=== PATIENT | female | born 1940 | race Caucasian/White ===

== ENCOUNTER 2016-11-09 14:19 | Emergency (ER) | payer MEDICAID, MEDICARE ==
[~2016-11-09] VITALS: Ht 160 cm; Wt 73.5 kg
[~2016-11-09 14:19] MED LIST: ATOR20TA38 PO; CEPH500C PO; CLON1TAB3 PO; DOCU250C17 PO; DULO60CA6 PO; FURO20TA3 PO; IBUP400T22 PO; METF500T4 PO; MIDO5TAB19 PO; MIRT15TA5 PO; MORP-58 PO; ORPH100T PO; OXYB15TA PO; PILO5TAB PO; TIOT18CA INHALATION; VARE0.5T PO
[2016-11-09 14:30] VITALS: Ht 160 cm; Wt 73.5 kg
== END 2016-11-09 20:52 | disposition left against medical advice (07) ==
LOC: E/R 14:19
DX: Z53.21 Procedure and treatment not carried out due to patient leaving prior to being seen by health care provider (principal)
CPT/HCPCS: 82962

== ENCOUNTER 2016-11-19 19:43 | Observation (INO) | payer MEDICARE, MEDICAID, OTHER ==
[~2016-11-19] VITALS: Ht 167.6 cm; Wt 75.2 kg
[2016-11-19] MEDS ORDERED: METHYLPREDNISOLONE 125 MG INJ IV STA (19:48)
[2016-11-19] MEDS ORDERED: ALBUTEROL 0.083% (NEB) 2.5 MG/3 ML AMP NEB STA (19:48)
[2016-11-19] MEDS ORDERED: IPRATROPIUM (NEB) 0.5 MG/2.5 ML AMP NEB STA (19:48)
[2016-11-19 20:11] LABS: ADD SCAN DIFF NO
[2016-11-19 20:14] LABS: BASOPHIL # 0.1 10^3/ul (0.0-0.1); BASOPHILS % 0.9 % (0.0-2.0); EOSINOPHILS # 0.1 10^3/ul (0.0-0.5); EOSINOPHILS % 1.6 % (0.0-7.0); HEMOGLOBIN 14.4 g/dl (12.0-16.0); LYMPHOCYTES # 1.6 10^3/ul (0.8-2.9); LYMPHOCYTES % 19.4 % (15.0-51.0); MEAN CORPUSCULAR HEMOGLOBIN 31.6 pg (29.0-33.0); MEAN CORPUSCULAR HGB CONC 34.3 g/dl (32.0-37.0); MEAN CORPUSCULAR VOLUME 92.1 fl (82.0-101.0); MEAN PLATELET VOLUME 9.9 fl (7.4-10.4); MONOCYTE # 0.5 10^3/ul (0.3-0.9); MONOCYTES % 6.2 % (0.0-11.0); NEUTROPHIL # 5.9 10^3/ul (1.6-7.5); NEUTROPHILS % 71.3 % (39.0-77.0); PLATELET COUNT 285 10^3/UL (140-415); RED BLOOD COUNT 4.56 10^6/ul (4.20-5.40); RED CELL DISTRIBUTION WIDTH 12.6 % (11.5-14.5); WHITE BLOOD COUNT 8.2 10^3/ul (4.8-10.8)
[2016-11-19 20:25] LABS: CHLORIDE 98 mmol/L (97-110); INR 1.04; POTASSIUM 3.6 mmol/L (3.5-5.1); PROTIME 13.6 Sec (12.2-14.2); PT RATIO 1.1; SODIUM 135 mmol/L (135-144)
[2016-11-19 20:26] LABS: PARTIAL THROMBOPLASTIN TIME 29.3 Sec (25.0-35.0)
[2016-11-19 20:27] LABS: CREATININE 0.88 mg/dl (0.44-1.00)
[2016-11-19 20:28] LABS: ANION GAP 18 (8-16); BLOOD UREA NITROGEN 13 mg/dl (7-20); CALCIUM 10.4 mg/dl (8.4-10.2); CARBON DIOXIDE 23 mmol/L (21-31); GLUCOSE 120 mg/dl (70-220)
[2016-11-19 20:43] LABS: TROPONIN-I < 0.012 ng/ml (0.00-0.12)
--- NOTE | 2016-11-19 20:52 | RADRPT ---
PROCEDURE: XR Chest. CLINICAL INDICATION: Chest pain. TECHNIQUE: Portable AP semi erect view of the chest was obtained. COMPARISON: 01/24/2016 FINDINGS: The cardiomediastinal silhouette is within normal limits, dual chamber left subclavian cardiac pacem anju is again noted in good position. The lungs are clear but appear mildly hyperinflated, the diap hragm flattened. There is no evidence for pleural effusion, pneumothorax or pulmonary vascular [place] estion. Demineralization is again noted without evidence of acute osseous abnormality. Calcificatio n is visible within the aortic arch RPTAT:HJJR IMPRESSION: 1.No evidence for acute intrathoracic pathology or interval change from 01/24/2016 allowing for tech nical differences. 2. Hyperinflation of the lungs unable to exclude chronic obstructive pulmonary disease. 3. Left subclavian approach dual chamber cardiac pacemaker in good position. 4. Aortic atherosclerosis is present. Physician Fredy Date Time Electronically viewed and signed by Physician Fredy on 11/19/2016 20:52 /
[2016-11-19] MEDS ORDERED: SOD CHLORIDE 0.9% 1,000 ML IV STA (20:55)
[2016-11-19] MEDS ORDERED: SOD CHLORIDE 0.9% 1,000 ML IV SCH (21:58)
[2016-11-19] MEDS ORDERED: ONDANSETRON 4 MG INJ IV PRN (22:00)
[2016-11-19] MEDS ORDERED: ACETAMINOPHEN 325 MG TAB PO PRN (22:00)
--- NOTE | 2016-11-19 22:03 | ERA ---
ER Documentation Chief Complaint Date/Time DATE: 11/19/16 TIME: 21:59 Chief Complaint COUGH, CONGESTION, DIZZINESS, FEVERS AT HOME HPI This is a 76-year-old female presents to the emergency room for multiple complaints including cough, congestion, dizziness, weakness, and multiple falls at home. The patient states she lives by herself and has no one to take care of her. She states that she is falling down. She denies hitting her head. She denies being on any blood thinners. She does state that her weakness has not improved and she came to the ER for evaluation today. The patient denies any aggravating or relieving factors for any of her symptoms. ROS All systems reviewed and are negative except as per history of present illness. Medications Home Meds Active Scripts Orphenadrine Citrate (Norflex) 100 Mg Tablet.sa, 100 MG PO BID for 7 Days, TAB.SA Prov:YOANNA TAYLOR 02/18/16 Ibuprofen* (Motrin*) 400 Mg Tab, 400 MG PO Q6, #30 TAB Prov:YOANNA TAYLOR 02/18/16 Cephalexin* (Cephalexin*) 500 Mg Capsule, 500 MG PO Q8, #15 CAP Prov:OSCAR BOYD MD 01/25/16 Reported Medications Varenicline Tartrate (Chantix) 0.5 Mg Tablet, 0.5 MG PO BID, TAB 01/24/16 Tiotropium [place]* (Spiriva*) 18 Mcg Cap.w.dev, 1 CAP INHALATION DAILY, #30 CAP 09/29/15 Mirtazapine* (Mirtazapine*) 15 Mg Tablet, 15 MG PO HS, TAB 09/29/15 Docusate Sodium (COL-RITE) 250 Mg Capsule, 250 MG PO DAILY, CAP 09/29/15 [place] Hcl* (Salagen*) 5 Mg Tablet, 10 MG PO TID, TAB 04/08/15 Oxybutynin Chloride* (Oxybutynin Chloride* ER) 15 Mg/Bottle Tab.osm.24, 15 MG PO DAILY, TAB.SA 04/08/15 Furosemide* (Furosemide*) 20 Mg Tablet, 20 MG PO DAILY, TAB 04/08/15 Morphine Sulfate* (Ms Contin ER*) 30 Mg Tabsr, 30 MG PO BID, TAB 04/08/15 Midodrine* (Midodrine*) 5 Mg Tablet, 5 MG PO BID, TAB 04/08/15 Atorvastatin Calcium* (Atorvastatin Calcium*) 20 Mg Tablet, 20 MG PO HS, TAB 04/08/15 Clonazepam* (Clonazepam*) 1 Mg Tablet, 1 MG PO TID, TAB 04/08/15 Metformin* (Glucophage*) 500 Mg Tab, 500 MG PO BID 01/14/12 Duloxetine Hcl* (Cymbalta*) 60 Mg Capsule.dr, 60 MG PO DAILY 01/14/12 Allergies Allergies: Coded Allergies: No Known Allergy (Unverified , 09/29/15) PMhx/Soc History of Surgery: Yes (pacemaker, baldder sx) Anesthesia Reaction: No Hx Neurological Disorder: No Hx Respiratory Disorders: Yes (lung CA) Hx Cardiac Disorders: Yes (low blood pressure) Hx Psychiatric Problems: Yes (depression,anxiety) Hx Miscellaneous Medical Probl: Yes (anxiety,cognitive impairment, severe lumbar stenosis) Hx Alcohol Use: No Hx Substance Use: No Hx Tobacco Use: Yes (10 cigs a day) Smoking Status: Current every day smoker Physical Exam Vitals Vital Signs Date Time Temp Pulse Resp B/P Pulse Ox O2 Delivery O2 Flow Rate FiO2 11/19/16 20:19 74 18 100 21 11/19/16 19:45 97.6 76 20 170/88 99 Physical Exam Const: Frail-appearing elderly female Head: Atraumatic Eyes: Normal Conjunctiva ENT: Normal External Ears, Nose and Mouth. Neck: Full range of motion..~ No meningismus. Resp: Expiratory wheezing bilaterally Cardio: Regular rate and rhythm, no murmurs Abd: Soft, non tender, non distended. Normal bowel sounds Skin: No petechiae or rashes Back: No midline or flank tenderness Ext: No cyanosis, or edema Neur: Awake and alert Psych: Normal Mood and Affect Result Diagram: 11/19/16199911/19/161999 Results 24 hrs Laboratory Tests Test 11/19/16 20:00 White Blood Count 8.210^3/ul Red Blood Count 4.5610^6/ul Hemoglobin 14.4g/dl Hematocrit 42.0% Mean Corpuscular Volume 92.1fl Mean Corpuscular Hemoglobin 31.6pg Mean Corpuscular Hemoglobin Concent 34.3g/dl Red Cell Distribution Width 12.6% Platelet Count 05684^3/UL Mean Platelet Volume 9.9fl Neutrophils % 71.3% Lymphocytes % 19.4% Monocytes % 6.2% Eosinophils % 1.6% Basophils % 0.9% Nucleated Red Blood Cells % 0.0/100WBC Neutrophils # 5.910^3/ul Lymphocytes # 1.610^3/ul Monocytes # 0.510^3/ul Eosinophils # 0.110^3/ul Basophils # 0.110^3/ul Nucleated Red Blood Cells # 0.010^3/ul Prothrombin Time 13.6Sec Prothrombin Time Ratio 1.1 INR International Normalized Ratio 1.04 Activated Partial Thromboplast Time 29.3Sec Sodium Level 135mmol/L Potassium Level 3.6mmol/L Chloride Level 98mmol/L Carbon Dioxide Level 23mmol/L Anion Gap 18 Blood Urea Nitrogen 13mg/dl Creatinine 0.88mg/dl Glucose Level 120mg/dl Calcium Level 10.4mg/dl Troponin I < 0.012ng/ml Current Medications Medications (Trade) Dose Ordered Sig/Elias Route PRN Reason Start Time Stop Time Status Last Admin Dose Admin Albuterol (Proventil 0.083% (Neb)) 5 mg ONCE STAT NEB 11/19/16 19:48 11/19/16 19:50 DC 11/19/16 20:17 Ipratropium [place] (Atrovent 0.02% (Neb)) 0.5 mg ONCE STAT NEB 11/19/16 19:48 11/19/16 19:50 DC 11/19/16 20:17 Methylprednisolone Sodium Succinate 125 mg 125 mg ONCE STAT IV 11/19/16 19:48 11/19/16 19:50 DC 11/19/16 20:06 Sodium Chloride (NS) 1,000 ml @ 1,000 mls/hr Q1H STAT IV 11/19/16 20:55 11/19/16 21:54 DC 11/19/16 21:08 Procedures/MDM EKG: Rate/Rhythm: [Normal Sinus Rhythm] QRS, ST, T-waves: [No changes consistent w/ acute ischemia] Impression: [No evidence of ischemia or arrhythmia] Chest X-ray 1V Interpreted by me: Soft Tissue: No acute abnormalities Bones: No acute abnormalities Mediastinum/Cardiac Silhouette/Lungs: [No acute abnormalities] This 76-year-old female presents to the emergency room for evaluation of multiple falls, weakness. When I evaluated this patient she did have mild wheezing on my examination. She was given a breathing treatment. This patient is lab work which is within normal limits however she is an elderly female who has had multiple falls at home and was potential risk of fall with significant injury. She has no one to take care of her, does not feel comfortable going home. This patient will be placed in for admission at this time for possible placement in a senior living at this time. This patient is hemodynamically stable and [facility] time under the care of Dr. Escobar Departure Diagnosis: Primary Impression: Bilateral leg weakness Additional Impressions: Fall COPD exacerbation Condition: Stable MILES ALDANA DO Nov 19, 2016 22:03
[2016-11-19] MEDS ORDERED: traZODone 50 MG TAB PO ONE (22:30)
[2016-11-19 23:25] LABS: ADD UMIC YES; URINE BILIRUBIN (Dip) NEGATIVE (NEGATIVE); URINE BLOOD (Dip) NEGATIVE (NEGATIVE); URINE COLOR LT. YELLOW (YELLOW); URINE GLUCOSE (Dip) NEGATIVE (NEGATIVE); URINE KETONES (Dip) NEGATIVE (NEGATIVE); URINE LEUKOCYTE ESTERASE (Dip) 1+ (NEGATIVE); URINE NITRITE (Dip) NEGATIVE (NEGATIVE); URINE TOTAL PROTEIN (Dip) NEGATIVE (NEGATIVE); URINE UROBILINOGEN (Dip) 0.2 E.U./dL (0.1-1.0)
[2016-11-19 23:34] LABS: SQUAMOUS EPITHELIAL CELL,UR RARE; URINE RBCS 0-2 /HPF (0)
[2016-11-20 01:21] VITALS: TEMP 98.3
[2016-11-20 01:57] VITALS: Ht 167.6 cm; Wt 75.2 kg
[2016-11-20 01:58] VITALS: BP 123/66; PULSE 85; RESP 20
[2016-11-20] MEDS ORDERED: ASPI-664 PO (02:59)
[2016-11-20] MEDS ORDERED: UDKCL40 PO (02:59)
[2016-11-20] MEDS ORDERED: TRAZ100T15 PO (02:59)
[2016-11-20] MEDS ORDERED: METH500T PO (02:59)
[2016-11-20 03:02] LABS: CREATINE KINASE 50 IU/L (23-200)
[2016-11-20 03:17] LABS: TROPONIN-I < 0.012 ng/ml (0.00-0.12)
[2016-11-20] MEDS ORDERED: ONDANSETRON 4 MG TAB PO PRN (03:30)
[2016-11-20] MEDS ORDERED: ACETAMINOPHEN 500 MG TAB PO PRN (03:30)
[2016-11-20] MEDS ORDERED: IBUP200C PO (04:40)
[2016-11-20] MEDS ORDERED: IBUPROFEN 400 MG TAB PO SCH (06:00)
[2016-11-20 07:35] VITALS: BP 119/72; RESP 19
[2016-11-20 08:07] LABS: ADD SCAN DIFF NO
[2016-11-20] MEDS: HEPARIN 5,000 UNIT/0.5 ML VIAL SC SCH ×2 (08:32→20:47)
[2016-11-20] MEDS: INSULIN ASPART [NOVOLOG] 3 ML PEN SC SCH ×4 (08:32→20:48)
[2016-11-20] MEDS: metFORMIN 500 MG TAB PO SCH ×2 (08:35→18:08)
[2016-11-20 09:05] LABS: ALBUMIN 3.9 g/dl (3.3-4.9)
[2016-11-20 09:06] LABS: POTASSIUM 3.8 mmol/L (3.5-5.1)
[2016-11-20 09:07] LABS: CREATINE KINASE 45 IU/L (23-200)
[2016-11-20 09:08] LABS: BILIRUBIN,INDIRECT 0.4 mg/dl (0-1.1); BILIRUBIN,TOTAL 0.4 mg/dl (0.2-1.3); CREATININE 0.75 mg/dl (0.44-1.00)
[2016-11-20 09:09] LABS: CALCIUM 9.3 mg/dl (8.4-10.2); CHOL/HDL RATIO 3.4 RATIO; MAGNESIUM 1.7 mg/dl (1.7-2.5)
[2016-11-20 09:14] LABS: ALBUMIN/GLOBULIN RATIO 1.25
[2016-11-20 09:17] LABS: CK-MB 1.03 ng/ml (0.0-2.4)
[2016-11-20 09:28] LABS: TROPONIN-I < 0.012 ng/ml (0.00-0.12)
[2016-11-20] MEDS: IBUPROFEN 400 MG TAB PO PRN ×2 (09:35→16:01)
[2016-11-20 10:31] LABS: BASOPHILS % 0.1 % (0.0-2.0); HEMATOCRIT 38.3 % (37.0-47.0); HEMOGLOBIN 13.2 g/dl (12.0-16.0); LYMPHOCYTES # 0.7 10^3/ul (0.8-2.9); LYMPHOCYTES % 5.8 % (15.0-51.0); MEAN CORPUSCULAR HEMOGLOBIN 32.3 pg (29.0-33.0); MEAN CORPUSCULAR HGB CONC 34.5 g/dl (32.0-37.0); MEAN CORPUSCULAR VOLUME 93.6 fl (82.0-101.0); MEAN PLATELET VOLUME 10.3 fl (7.4-10.4); MONOCYTE # 0.1 10^3/ul (0.3-0.9); MONOCYTES % 0.8 % (0.0-11.0); NEUTROPHIL # 11.3 10^3/ul (1.6-7.5); PLATELET COUNT 296 10^3/UL (140-415); RED BLOOD COUNT 4.09 10^6/ul (4.20-5.40); RED CELL DISTRIBUTION WIDTH 12.6 % (11.5-14.5); WHITE BLOOD COUNT 12.2 10^3/ul (4.8-10.8)
[2016-11-20] MEDS ORDERED: GLUCOSE GEL 15 GRAM TUBE BUCCAL PRN (17:00)
[2016-11-20] MEDS ORDERED: DEXTROSE 50% 50 ML SYRINGE IV PRN ×2 (17:00)
[2016-11-20] MEDS ORDERED: GLUCAGON 1 MG INJ IM PRN (17:00)
[2016-11-20] MEDS ORDERED: GLUCOSE GEL 15 GRAM TUBE PO PRN ×2 (17:00)
--- NOTE | 2016-11-20 18:44 | HP ---
DATE OF ADMISSION: 11/19/2016 CHIEF COMPLAINT: Status post fall. HISTORY OF PRESENT ILLNESS: This is a 76-year-old woman who has had multiple falls at home. She de nied hitting her head. According to her, she did not lose any consciousness or did not have any diz ziness or other complaints. According to her occasionally she feels weak in her legs and sustains th neena falls and these are quite common. In any event, the patient was subsequently hospitalized for rther care. At present, she is sitting in bed. She denies any specific complaints other than low b ack pain which is chronic. Also she is complaining of the right shoulder area muscle spasm. Other t mayes that, she denies any cough, sputum production, fevers or other complaints. REVIEW OF SYSTEMS: CONSTITUTIONAL: Denies fever, chills, night sweats. RESPIRATORY: As mentioned above. CARDIOVASCULAR: Denies anginal palpitation. GASTROINTESTINAL: Denies nausea, vomiting, diarrhea, abdominal pain. GENITOURINARY: Denies dysuria or hematuria. NEUROLOGIC: Denies any loss of consciousness. Again also denies any seizure activity or dizziness. Other systems were reviewed also and were found negative. 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 She was also offered chemotherapy, but she declined. This was several years ago. She does not know the nature of the type of cancer. Also, has a history of cardiac pacemaker, depre ssion, anxiety, chronic back pain. ALLERGIES: DENIES. SOCIAL HABITS: The patient continues to smoke. Denies alcohol abuse. FAMILY HISTORY: Noncontributory. PHYSICAL EXAMINATION: VITAL SIGNS: Blood pressure 119/72, pulse 84, respirations 19, temperature 97.7. She is saturating 98% on room air. HEENT: Pupils are equal and reactive to light. NECK: Supple, no JVD noted, no cervical adenopathy, no carotid bruits heard. LUNGS: Fair breath sounds bilaterally. CARDIOVASCULAR: S1, S2 normal. ABDOMEN: Soft, nontender. No organomegaly or masses noted. EXTREMITIES: No clubbing, cyanosis, or edema noted. NEUROLOGICAL: No focal deficits noted. LABORATORIES: Sodium 135, potassium 3.8, chloride 101, CO2 22, BUN 12, creatinine 0.75, glucose 210 . LFTs are normal. Troponin less than 0.01. WBC 8.2, which is now 12.2, hemoglobin 13.2, hematocr it 38.3, platelets 296. UA is negative. Chest x-ray shows hyperinflated lung solares; however, no a cute infiltrate. Pacemaker in place. IMPRESSION: A 76-year-old female with: 1. Multiple falls, but cause is not quite clear. It appears that the patient does not have any car diac or neurological event. She is on multiple pain killers which may be the cause of these falls; however, she claims that she has been on these medications for a long time. 2. History of cancer in the neck, treated with radiation therapy; however, details are not availabl e. 3. History of chronic back pain due to lumbar stenosis. 4. History of smoking, suspect the patient has underlying chronic obstructive pulmonary disease; ho wever, not an exacerbation. PLAN: 1. Based on the current data, I do not see any evidence of infection. 2. The patient is not in COPD exacerbation as well. 3. We will ask for physical therapy evaluation. 4. The patient was advised that since she lives alone, she should make arrangements for a short-ter m fci placement, followed by an assisted care living facility. However, at present she is adamantly refusing such options. We will discuss with primary care team. Dictated By: LESLIE VAZQUEZ MD, MA/ADRIEL Conf#: [id number] DID#: [id number]
[2016-11-20 19:31] VITALS: BP 129/69; RESP 20
--- NOTE | 2016-11-20 20:03 | RADRPT ---
Echocardiogram Report Patient Name: YIFAN PALOMARES Gender: Female Date: 1940 Study Date: 20-Nov-2016 [place] Set Up Operator: Priyanka Lindsay [facility] Location: [id number] Ref. Physician: MARIELA CATALAN Quality: Good Procedures: Transthoracic echocardiogram with complete 2D, M-Mode, and doppler examination. Indications: Dizziness. 2D/M Mode Doppler Measurement Value Normal Ranges Measurement Value Normal Ranges LVIDd 2D 4.8 3.5 - 5.6 cm AV Peak [place] 1.5 m/sec LVIDs 2D 2.4 2.1 - 4.1 cm AV Peak PG 9.5 mmHg LVPWd 2D 1.0 0.6 - 1.1 cm LVOT Peak [place] 1.2 m/sec IVSd 2D 0.9 0.6 - 1.1 cm LVOT Peak PG 5.7 mmHg AoR Diam 2D 2.6 2.0 - 3.7 cm MV E Peak [place] 0.6 m/sec EDV 2D 108.2 cm3 MV A Peak [place] 0.9 m/sec ESV 2D 13.6 cm3 MV E/A 0.7 LA Dimen 2D 2.7 2.3 - 4.0 cm MV Decel Time 186 msec MV Decel [place] 3 MV E/A 0.7 TR Peak [place] 2.5 m/sec TR Peak PG 24.1 mmHg RVSP 27.0 mmHg Findings Left Ventricle: Normal left ventricular systolic function. Normal left ventricular cavity size. Mild concentric left ventricular hypertrophy. Ejection fraction is visually estimated at 6065 %. Tissue Doppler/Mitral Doppler indices are consistent with impaired relaxation (Stage I diastolic dysfunction). Right Ventricle: Normal right ventricular size. Normal right ventricular systolic function. Pacemaker right heart. Left Atrium: The left atrium is normal in size. Right Atrium: The right atrium is normal in size. Mitral Valve: Mitral valve leaflets appear mildly thickened. Mild mitral annular calcification. Trace mitral regurgitation. Aortic Valve: Normal appearance of the aortic valve. No significant aortic stenosis or insufficiency. Tricuspid Valve: Normal appearance of the tricuspid valve. Estimated peak PA systolic pressure 27 mmHg. There is trace tricuspid regurgitation. Pulmonic Valve: Pulmonic valve not well visualized. Pericardium: Normal pericardium with no significant pericardial effusion. Aorta: Normal aortic root. IVC: Normal size and normal respiratory collapse consistent with normal right atrial pressure. Conclusions 1.Normal left ventricular systolic function. Normal left ventricular cavity size. Mild concentric left ventricular hypertrophy. Ejection fraction is visually estimated at 60-65 %. Tissue Doppler/Mitral Doppler indices are consistent with impaired relaxation (Stage I diastolic dysfunction). 2.Normal right ventricular size. Normal right ventricular systolic function. Pacemaker right heart. 3.Mitral valve leaflets appear mildly thickened. Mild mitral annular calcification. Trace mitral regurgitation. 4.Normal appearance of the tricuspid valve. Estimated peak PA systolic pressure 27 mmHg. There is trace tricuspid regurgitation. Electronically Signed By: Desmond Grier 20-Nov-2016 20:02:33 -0700 Patient Name: YIFAN PALOMARES Study Date: 20-Nov-[id number]
[2016-11-20] MEDS ORDERED: KETOROLAC 15 MG INJ IV STA (21:32)
[2016-11-21] MEDS: ACCU-CHEK XX SCH (00:53)
[2016-11-21] MEDS ORDERED: ACCU-CHEK XX SCH (02:00)
[2016-11-21] MEDS: IBUPROFEN 400 MG TAB PO PRN ×3 (02:41→20:36)
[2016-11-21] MEDS ORDERED: AL HYDROX/MG HYDROX/SIMETH 30 ML CUP PO ONE (03:00)
[2016-11-21] MEDS: PANTOPRAZOLE (EC) 40 MG TAB PO SCH (05:32)
--- NOTE | 2016-11-21 06:39 | HP ---
DATE OF ADMISSION: 11/19/2016 TIME SEEN: 2300. CHIEF COMPLAINT: Dizziness, weakness and multiple falls. HISTORY OF ILLNESS: The patient is a 76-year-old female with a history of hypertension, diabetes, d yslipidemia, asthma, pacemaker who presented to the emergency department with the above stated chief complaint. The patient also has a history of old CVA. The patient had multiple complaints which i ncludes dizziness, generalized weakness and also reported that she had been falling down multiple ti mes. The patient is not a really good accusatory. PAST MEDICAL HISTORY: The patient repeatedly states "my doctor told me I don't have Parkinson's dise ase and she kept mentioning that a few times. She stated that sometimes she feels dizzy and also she noticed her legs feeling weak and as a result, she has been losing balance and falling down. She d enied hitting her head or loss of consciousness. When the patient presented to the ER. Her vitals a nd basic labs were within acceptable range. A head CT was not done, but she did have one from last year which showed an old CVA. LSO IN September of last year she had a CT of the lumbar spine, which show ed severe foraminal stenosis as well as the compression deformity in the L2 vertebral body. The pat meron also reported that she recently from her fiance and has been living by herself and fe eling depressed. The patient takes multiple medications at home, over 20. REVIEW OF SYSTEMS: AA 12-point review was performed, negative except as mentioned in the HPI. PAST MEDICAL HISTORY: As per HPI. PAST SURGICAL HISTORY: She smoked a half pack per day. Denied alcohol or illicit drug use. ALLERGIES AND HOME MEDICATIONS: Please see ____. PHYSICAL EXAMINATION: VITAL SIGNS: Stable. GENERAL: The patient lying in bed in no acute distress. DICTATION ENDS HERE, INCOMPLETE Dictated By: MARIELA LARSEN/ADRIEL Conf#: [id number] DID#: [id number]
[2016-11-21] MEDS: INSULIN ASPART [NOVOLOG] 3 ML PEN SC SCH ×4 (08:47→20:36)
[2016-11-21] MEDS: HEPARIN 5,000 UNIT/0.5 ML VIAL SC SCH ×2 (08:47→20:35)
[2016-11-21] MEDS: metFORMIN 500 MG TAB PO SCH ×2 (08:51→17:42)
--- NOTE | 2016-11-21 12:57 | DS ---
Date/Time of Note Date/Time of Note DATE: 11/21/16 TIME: 12:45 Discharge Summary Admission/Discharge Info Admit Date/Time Nov 19, 2016 at 21:59 Discharge Date/Time Final Diagnosis 1. Generalized weakness with frequent falls, multifactorial, needs PT, SNF to better but patient signed AMA 2. Major depression, on symbalta, follow up with psychiatry for medication adjustment 3. COPD, stable, needs to stop smoking 4. DM, stable 5. Hypertension, controlled 6. Dyslipidemia, on statin 7. h/o stroke Patient Condition: Fair Hospital Course 76 years old female with hypertension, DM, dyslipidemia, smoker with COPD, and major depression came in with generalized dizziness, weakness and falls due to weakness. She gives a history of poor appetite, weight loss, poor sleep needs sleeping pills regularly. Denies suicidal. Physical exam unremarkable. Vital signs stable. H/H and electrolytes unremarkable. Echocardiography unremarkable. The symptoms are likely from major depression, poor intake and weight loss. other etiology needs to be ruled out. Patient refuses to stay in the hospital for further work up and treatment and signed AMA. She is instructed to see her psychiatrist as soon as possible. Home Meds Active Scripts Orphenadrine Citrate (Norflex) 100 Mg Tablet.sa, 100 MG PO BID for 7 Days, TAB.SA Prov:YOANNA TAYLOR 02/18/16 Cephalexin* (Cephalexin*) 500 Mg Capsule, 500 MG PO Q8, #15 CAP Prov:OSCAR BOYD MD 01/25/16 Reported Medications Ibuprofen* (Ibuprofen*) 200 Mg Capsule, 400 MG PO Q6 Y for PAIN, CAP 11/20/16 Trazodone Hcl* (Trazodone Hcl*) 100 Mg Tablet, 100 MG PO QHS, #30 TAB 11/20/16 Methocarbamol* (Robaxin*) 500 Mg Tab, 500 MG PO Q8, TAB 11/20/16 Aspirin* (Aspirin* EC) 81 Mg Tablet.dr, 81 MG PO QID, TAB 11/20/16 Potassium Chloride* (KCl*) 40 Meq/30 Ml Soln, 10 MEQ PO BID, MEQ 11/20/16 Varenicline Tartrate (Chantix) 0.5 Mg Tablet, 0.5 MG PO BID, TAB 01/24/16 Tiotropium [place]* (Spiriva*) 18 Mcg Cap.w.dev, 1 CAP INHALATION DAILY, #30 CAP 09/29/15 Mirtazapine* (Mirtazapine*) 15 Mg Tablet, 15 MG PO HS, TAB 09/29/15 Docusate Sodium (COL-RITE) 250 Mg Capsule, 250 MG PO DAILY, CAP 09/29/15 [place] Hcl* (Salagen*) 5 Mg Tablet, 10 MG PO TID, TAB 04/08/15 Oxybutynin Chloride* (Oxybutynin Chloride* ER) 15 Mg/Bottle Tab.osm.24, 15 MG PO DAILY, TAB.SA 04/08/15 Furosemide* (Furosemide*) 20 Mg Tablet, 20 MG PO DAILY, TAB 04/08/15 Morphine Sulfate* (Ms Contin ER*) 30 Mg Tabsr, 30 MG PO BID, TAB 04/08/15 Midodrine* (Midodrine*) 5 Mg Tablet, 5 MG PO BID, TAB 04/08/15 Atorvastatin Calcium* (Atorvastatin Calcium*) 20 Mg Tablet, 20 MG PO HS, TAB 04/08/15 Clonazepam* (Clonazepam*) 1 Mg Tablet, 1 MG PO TID, TAB 04/08/15 Metformin* (Glucophage*) 500 Mg Tab, 500 MG PO BID 01/14/12 Duloxetine Hcl* (Cymbalta*) 60 Mg Capsule.dr, 60 MG PO DAILY 01/14/12 Discontinued Scripts Ibuprofen* (Motrin*) 400 Mg Tab, 400 MG PO Q6, #30 TAB Prov:YOANNA TAYLOR 02/18/16 Follow-up Plan PCP in one week Psychiatry in one week Pending Labs Laboratory Tests Test 11/20/16 17:40 11/20/16 20:43 11/21/16 08:41 Bedside Glucose 116mg/dL (70-220) 173mg/dL (70-220) 144mg/dL (70-220) CHAYITO KUMARI MD November 21, 2016 12:56
[2016-11-21 19:50] VITALS: BP 183/81; RESP 18
[2016-11-21 21:20] VITALS: BP 153/78; PULSE 78; RESP 18
[2016-11-21] MEDS ORDERED: LORAZEPAM 2 MG INJ IV ONE (22:00)
[2016-11-22] MEDS: ACCU-CHEK XX SCH (01:55)
[2016-11-22] MEDS: PANTOPRAZOLE (EC) 40 MG TAB PO SCH (06:23)
[2016-11-22 07:32] VITALS: BP 169/80; RESP 18
[2016-11-22] MEDS: INSULIN ASPART [NOVOLOG] 3 ML PEN SC SCH ×2 (08:51→11:40)
[2016-11-22] MEDS: metFORMIN 500 MG TAB PO SCH (08:56)
[2016-11-22] MEDS: HEPARIN 5,000 UNIT/0.5 ML VIAL SC SCH (09:00)
[2016-11-22 12:15] VITALS: BP 155/78; PULSE 83; RESP 20
--- NOTE | 2016-11-22 13:28 | DS ---
Date/Time of Note Date/Time of Note DATE: 11/22/16 TIME: 13:26 Discharge Summary Admission/Discharge Info Admit Date/Time Nov 19, 2016 at 21:59 Discharge Date/Time Final Diagnosis 1. Generalized weakness with frequent falls, multifactorial, mostly depression related, follow up with psychiatry and home PT 2. Major depression, on symbalta, follow up with psychiatry for medication adjustment 3. COPD, stable, needs to stop smoking 4. DM, stable 5. Hypertension, controlled 6. Dyslipidemia, on statin 7. h/o stroke Patient Condition: Stable Hospital Course 76 years old female with hypertension, DM, dyslipidemia, smoker with COPD, and major depression came in with generalized dizziness, weakness and falls due to weakness. She gives a history of poor appetite, weight loss, poor sleep needs sleeping pills regularly. Denies suicidal. Physical exam unremarkable. Vital signs stable. H/H and electrolytes unremarkable. Echocardiography unremarkable. The symptoms are likely from major depression, poor intake and weight loss. Normal TSH level. Patient will be discharged home with home PT. She is instructed to follow up with psychiatry as soon as possible to adjust treatment for major depression. Home Meds Active Scripts Orphenadrine Citrate (Norflex) 100 Mg Tablet.sa, 100 MG PO BID for 7 Days, TAB.SA Prov:YOANNA TAYLOR 02/18/16 Cephalexin* (Cephalexin*) 500 Mg Capsule, 500 MG PO Q8, #15 CAP Prov:OSCAR BOYD MD 01/25/16 Reported Medications Ibuprofen* (Ibuprofen*) 200 Mg Capsule, 400 MG PO Q6 Y for PAIN, CAP 11/20/16 Trazodone Hcl* (Trazodone Hcl*) 100 Mg Tablet, 100 MG PO QHS, #30 TAB 11/20/16 Methocarbamol* (Robaxin*) 500 Mg Tab, 500 MG PO Q8, TAB 11/20/16 Aspirin* (Aspirin* EC) 81 Mg Tablet.dr, 81 MG PO QID, TAB 11/20/16 Varenicline Tartrate (Chantix) 0.5 Mg Tablet, 0.5 MG PO BID, TAB 01/24/16 Tiotropium [place]* (Spiriva*) 18 Mcg Cap.w.dev, 1 CAP INHALATION DAILY, #30 CAP 09/29/15 Mirtazapine* (Mirtazapine*) 15 Mg Tablet, 15 MG PO HS, TAB 09/29/15 Docusate Sodium (COL-RITE) 250 Mg Capsule, 250 MG PO DAILY, CAP 09/29/15 [place] Hcl* (Salagen*) 5 Mg Tablet, 10 MG PO TID, TAB 04/08/15 Oxybutynin Chloride* (Oxybutynin Chloride* ER) 15 Mg/Bottle Tab.osm.24, 15 MG PO DAILY, TAB.SA 04/08/15 Morphine Sulfate* (Ms Contin ER*) 30 Mg Tabsr, 30 MG PO BID, TAB 04/08/15 Midodrine* (Midodrine*) 5 Mg Tablet, 5 MG PO BID, TAB 04/08/15 Atorvastatin Calcium* (Atorvastatin Calcium*) 20 Mg Tablet, 20 MG PO HS, TAB 04/08/15 Clonazepam* (Clonazepam*) 1 Mg Tablet, 1 MG PO TID, TAB 04/08/15 Metformin* (Glucophage*) 500 Mg Tab, 500 MG PO BID 01/14/12 Duloxetine Hcl* (Cymbalta*) 60 Mg Capsule.dr, 60 MG PO DAILY 01/14/12 Discontinued Reported Medications Potassium Chloride* (KCl*) 40 Meq/30 Ml Soln, 10 MEQ PO BID, MEQ 11/20/16 Furosemide* (Furosemide*) 20 Mg Tablet, 20 MG PO DAILY, TAB 04/08/15 Discontinued Scripts Ibuprofen* (Motrin*) 400 Mg Tab, 400 MG PO Q6, #30 TAB Prov:YOANNA TAYLOR 02/18/16 Follow-up Plan PCP and psychiatry in one week Pending Labs Laboratory Tests Test 11/21/16 14:50 11/21/16 17:41 11/21/16 20:31 11/22/16 08:46 Thyroid Stimulating Hormone (TSH) 2.280MIU/L (0.465-4.680) Bedside Glucose 242mg/dL (70-220) 130mg/dL (70-220) 144mg/dL (70-220) Test 11/22/16 12:01 Bedside Glucose 122mg/dL (70-220) CHAYITO KUMARI MD November 22, 2016 13:28
[2016-11-22] MEDS: IBUPROFEN 400 MG TAB PO PRN (14:25)
== END 2016-11-22 16:20 | disposition home or self-care (01) ==
LOC: E/R 19:43 → MS1 21:59 → INTOOBSV 21:59 → MS1 11-20 01:36
PROVIDERS: ADMIT Internal Medicine; ATTEND Internal Medicine
DX: R53.1 Weakness (principal); F32.9 Major depressive disorder, single episode, unspecified; Z91.81 History of falling; J44.9 Chronic obstructive pulmonary disease, unspecified; I10 Essential (primary) hypertension; E78.5 Hyperlipidemia, unspecified; Z86.73 Personal history of transient ischemic attack (TIA), and cerebral infarction without residual deficits; F17.200 Nicotine dependence, unspecified, uncomplicated
CPT/HCPCS: 36415; 71010; 80048; 80053; 80061; 81001; 82550; 82553; 82962; 83036; 83735; 84443; 84484; 85025; 85610; 85730; 92526; 92610; 93005; 93306; 94664; 96372; 96374; 97116; 97162; 99285; G0378; G8996; G8997; G8998; J1644; J1815; J1885; J2060; J2930; J7030; 81003

== ENCOUNTER 2017-04-02 11:22 | Emergency (ER) | payer MEDICAID, MEDICARE, OTHER ==
[~2017-04-02] VITALS: Ht 167.6 cm; Wt 63.6 kg
[~2017-04-02 11:22] MED LIST changes: +ASPI-664 PO; -FURO20TA3 PO; +IBUP200C PO; -IBUP400T22 PO; +METH500T PO; +TRAZ100T15 PO
[2017-04-02 11:24] VITALS: Ht 167.6 cm; Wt 63.6 kg
[2017-04-02 12:35] LABS: BASOPHIL # 0.1 10^3/ul (0.0-0.1); EOSINOPHILS # 0.2 10^3/ul (0.0-0.5); EOSINOPHILS % 3.3 % (0.0-7.0); HEMATOCRIT 40.4 % (37.0-47.0); HEMOGLOBIN 13.4 g/dl (12.0-16.0); LYMPHOCYTES # 1.7 10^3/ul (0.8-2.9); LYMPHOCYTES % 25.5 % (15.0-51.0); MEAN CORPUSCULAR HEMOGLOBIN 31.7 pg (29.0-33.0); MEAN CORPUSCULAR HGB CONC 33.2 g/dl (32.0-37.0); MEAN CORPUSCULAR VOLUME 95.5 fl (82.0-101.0); MEAN PLATELET VOLUME 9.6 fl (7.4-10.4); MONOCYTE # 0.5 10^3/ul (0.3-0.9); MONOCYTES % 7.5 % (0.0-11.0); NEUTROPHILS % 62.6 % (39.0-77.0); PLATELET COUNT 259 10^3/UL (140-415); RED BLOOD COUNT 4.23 10^6/ul (4.20-5.40); RED CELL DISTRIBUTION WIDTH 12.5 % (11.5-14.5); WHITE BLOOD COUNT 6.7 10^3/ul (4.8-10.8)
[2017-04-02 12:52] LABS: CALCIUM 9.6 mg/dl (8.4-10.2); CREATININE 0.84 mg/dl (0.44-1.00); POTASSIUM 4.2 mmol/L (3.5-5.1)
--- NOTE | 2017-04-02 12:54 | RADRPT ---
PROCEDURE: US Carotids. CLINICAL INDICATION: bruit , pain , right arm weakness TECHNIQUE: Multiple sonographic of the carotid bifurcation region and vertebral arteries were obta ined utilizing kwok scale, duplex and color-flow imaging. The images were reviewed on a PACS worksta tion. COMPARISON: No prior studies are available for comparison. FINDINGS: Evaluation of the right carotid bifurcation region reveals moderate calcific atherosclerotic disease . . There is a 45% stenosis in the right carotid bulb region. Evaluation of the left carotid bifurcation region reveals mild to moderate calcific atherosclerotic disease and soft plaque. . There is a 34% stenosis in the left carotid bulb region. There is antegrade flow within the vertebral arteries bilaterally. RIGHT CAROTID MEASUREMENTS: Common Carotid Nubckq30.6 (cm/sec) Internal Carotid Artery - geyxljbx79.8 (cm/sec) Internal Carotid Artery - mid92.6 (cm/sec) Internal Carotid Artery - rqrpum68.2 (cm/sec) Internal Carotid/Common Carotid1.36 LEFT CAROTID MEASUREMENTS: Common Carotid Iwrcmp58.2 (cm/sec) Internal Carotid Artery - qibgkrfy47 (cm/sec) Internal Carotid Artery - mid97.8 (cm/sec) Internal Carotid Artery - [id number] (cm/sec) Internal Carotid/Common Carotid1.67 RPTAT: AA IMPRESSION: No evidence for hemodynamically significant stenosis in the bilateral internal carotid arteries - va lidated velocity measurements with angiographic measurements, velocity criteria are extrapolated fro m diameter data as defined by the Society of Radiologists in Ultrasound Consensus Conference Radiolo gy 2003; 229;340-346. This study does indirectly reference the measurement of the distal ICA diamet er as the denominator for stenosis measurement. Normal antegrade flow in the vertebral arteries bilaterally. .Tyson Coulter MD, Date Time Electronically viewed and signed by .Tyson Coulter MD, MD on 04/02/2017 12:53 .S/
--- NOTE | 2017-04-02 13:34 | ERA ---
ER Documentation Chief Complaint Date/Time DATE: 04/02/17 Chief Complaint Chronic lower extremity weakness HPI . The patient is a 76-year-old female, presenting with chronic bilateral lower extremity weakness from chronic lumbar stenosis. She was admitted in September 2015 and was evaluated by neurosurgeon Dr. Hanson who did not recommended surgery. she denies urinary/fecal incontinence, fever, neck pain, chest pain, dyspnea, abdominal pain, vomiting. She complains of intermittent right-sided spasm for the last few months. She smokes, denies drinking Past medical history: Lumbar stenosis, diabetes mellitus, history of sick sinus syndrome, dyslipidemia, depression, anxiety, history of lung cancer treated with radiation therapy, chronic bilateral lower extremity weakness, peripheral neuropathy Past surgical history: Pacemaker ROS All systems reviewed and are negative except as per history of present illness. Medications Home Meds Active Scripts Orphenadrine Citrate (Norflex) 100 Mg Tablet.sa, 100 MG PO BID for 7 Days, TAB.SA Prov:YOANNA TAYLOR 02/18/16 Cephalexin* (Cephalexin*) 500 Mg Capsule, 500 MG PO Q8, #15 CAP Prov:OSCAR BOYD MD 01/25/16 Reported Medications Ibuprofen* (Ibuprofen*) 200 Mg Capsule, 400 MG PO Q6 Y for PAIN, CAP 11/20/16 Trazodone Hcl* (Trazodone Hcl*) 100 Mg Tablet, 100 MG PO QHS, #30 TAB 11/20/16 Methocarbamol* (Robaxin*) 500 Mg Tab, 500 MG PO Q8, TAB 11/20/16 Aspirin* (Aspirin* EC) 81 Mg Tablet.dr, 81 MG PO QID, TAB 11/20/16 Varenicline Tartrate (Chantix) 0.5 Mg Tablet, 0.5 MG PO BID, TAB 01/24/16 Tiotropium Bim* (Spiriva*) 18 Mcg Cap.w.dev, 1 CAP INHALATION DAILY, #30 CAP 09/29/15 Mirtazapine* (Mirtazapine*) 15 Mg Tablet, 15 MG PO HS, TAB 09/29/15 Docusate Sodium (COL-RITE) 250 Mg Capsule, 250 MG PO DAILY, CAP 09/29/15 [place] Hcl* (Salagen*) 5 Mg Tablet, 10 MG PO TID, TAB 9/17/15 Oxybutynin Chloride* (Oxybutynin Chloride* ER) 15 Mg/Bottle Tab.osm.24, 15 MG PO DAILY, TAB.SA 04/08/15 Morphine Sulfate* (Ms Contin ER*) 30 Mg Tabsr, 30 MG PO BID, TAB 04/08/15 Midodrine* (Midodrine*) 5 Mg Tablet, 5 MG PO BID, TAB 04/08/15 Atorvastatin Calcium* (Atorvastatin Calcium*) 20 Mg Tablet, 20 MG PO HS, TAB 04/08/15 Clonazepam* (Clonazepam*) 1 Mg Tablet, 1 MG PO TID, TAB 04/08/15 Metformin* (Glucophage*) 500 Mg Tab, 500 MG PO BID 01/14/12 Duloxetine Hcl* (Cymbalta*) 60 Mg Capsule.dr, 60 MG PO DAILY 01/14/12 Allergies Allergies: Coded Allergies: No Known Allergy (Unverified , 09/29/15) PMhx/Soc History of Surgery: Yes (bladder Sx ) Anesthesia Reaction: No Hx Neurological Disorder: No Hx Respiratory Disorders: Yes (SOB, asthma, bronchitis) Hx Cardiac Disorders: Yes (pacemaker; HTN) Hx Psychiatric Problems: Yes (depression) Hx Miscellaneous Medical Probl: Yes (FALLS,PACE MAKER,LUNG CA,DEPRESSION, ANXIETY,BLADDER SX, L/S STENOSIS) Hx Alcohol Use: No (25 years ago stopped drinking) Hx Substance Use: Yes (Pt stopped drinking 25 years ago) Hx Tobacco Use: No Smoking Status: Former smoker Physical Exam Vitals Vital Signs Date Time Temp Pulse Resp B/P Pulse Ox O2 Delivery O2 Flow Rate FiO2 04/02/17 11:24 98.9 67 18 112/58 98 Physical Exam Const: No acute distress. Head: Atraumatic. Eyes: Normal Conjunctiva. ENT: Normal External Ears, Nose and Mouth. Neck: Full range of motion. No meningismus. Resp: Clear to auscultation bilaterally. Cardio: Regular rate and rhythm. Abd: Soft, non distended, normal bowel sounds, non tender. Skin: No petechiae or rashes. Back: No midline or flank tenderness. Ext: No cyanosis, or edema. Neur: Awake and alert. No focal deficit Psych: Normal Mood and Affect. Result Diagram: 04/02/17 1220 04/02/17 1220 Results 24 hrs Laboratory Tests Test 04/02/17 12:20 White Blood Count 6.710^3/ul Red Blood Count 4.2310^6/ul Hemoglobin 13.4g/dl Hematocrit 40.4% Mean Corpuscular Volume 95.5fl Mean Corpuscular Hemoglobin 31.7pg Mean Corpuscular Hemoglobin Concent 33.2g/dl Red Cell Distribution Width 12.5% Platelet Count 36251^3/UL Mean Platelet Volume 9.6fl Neutrophils % 62.6% Lymphocytes % 25.5% Monocytes % 7.5% Eosinophils % 3.3% Basophils % 1.0% Nucleated Red Blood Cells % 0.0/100WBC Neutrophils # (Manual) 4.210^3/ul Lymphocytes # 1.710^3/ul Monocytes # 0.510^3/ul Eosinophils # 0.210^3/ul Basophils # 0.110^3/ul Nucleated Red Blood Cells # 0.010^3/ul Sodium Level 136mmol/L Potassium Level 4.2mmol/L Chloride Level 102mmol/L Carbon Dioxide Level 26mmol/L Anion Gap 12 Blood Urea Nitrogen 16mg/dl Creatinine 0.84mg/dl Glucose Level 126mg/dl Calcium Level 9.6mg/dl Procedures/MDM MEDICAL MAKING DECISION: The patient is a 76-year-old female, presenting with chronic bilateral lower extremity weakness due to chronic lumbar stenosis and acute cervical spasm. She is stable for outpatient follow-up The differential diagnoses considered include but are not limited to caudal equina syndrome, spinal abscess, DJD, diskitis, lumbar radiculopathy. Departure Diagnosis: Primary Impression: Lumbar stenosis Additional Impression: Neck muscle spasm Condition: Good Patient Instructions: Peripheral Vascular Disease, Neck Spasm, No Trauma Referrals: GABRIELE HANSON MD Additional Instructions: Call your primary care doctor and Dr Hanson TOMORROW for an appointment during the next 2-3 days.See the doctor sooner or return here if your condition worsens before your appointment time. CHECO HURT MD Apr 02, 2017 13:34
[2017-04-02 13:54] VITALS: BP 119/61; PULSE 68; RESP 20
== END 2017-04-02 14:25 | disposition home or self-care (01) ==
LOC: E/R 11:22
DX: M48.06 Spinal stenosis, lumbar region (principal); M62.838 Other muscle spasm; I10 Essential (primary) hypertension; J45.909 Unspecified asthma, uncomplicated; R40.2142 Coma scale, eyes open, spontaneous, at arrival to emergency department; R40.2252 Coma scale, best verbal response, oriented, at arrival to emergency department; R40.2362 Coma scale, best motor response, obeys commands, at arrival to emergency department; Z95.0 Presence of cardiac pacemaker; Z87.891 Personal history of nicotine dependence; Z79.84 Long term (current) use of oral hypoglycemic drugs; Z79.82 Long term (current) use of aspirin; Z85.118 Personal history of other malignant neoplasm of bronchus and lung
CPT/HCPCS: 36415; 80048; 85025; 93880

== ENCOUNTER 2017-04-06 18:36 | Emergency (ER) | payer OTHER ==
[~2017-04-06] VITALS: Ht 167.6 cm; Wt 63.0 kg
[2017-04-06] MEDS ORDERED: morphine 4 MG/ML VIAL IV STA (18:45)
[2017-04-06] MEDS ORDERED: SOD CHLORIDE 0.9% 500 ML IV STA (18:45)
[2017-04-06] MEDS ORDERED: ONDANSETRON 4 MG INJ IV STA (18:45)
[2017-04-06 18:46] VITALS: Ht 167.6 cm; Wt 63.0 kg
[2017-04-06 19:18] LABS: BASOPHIL # 0.1 10^3/ul (0.0-0.1); BASOPHILS % 0.6 % (0.0-2.0); EOSINOPHILS # 0.1 10^3/ul (0.0-0.5); EOSINOPHILS % 1.1 % (0.0-7.0); HEMATOCRIT 40.5 % (37.0-47.0); HEMOGLOBIN 14.1 g/dl (12.0-16.0); LYMPHOCYTES # 1.5 10^3/ul (0.8-2.9); LYMPHOCYTES % 19.4 % (15.0-51.0); MEAN CORPUSCULAR HEMOGLOBIN 32.7 pg (29.0-33.0); MEAN CORPUSCULAR HGB CONC 34.8 g/dl (32.0-37.0); MEAN PLATELET VOLUME 10.2 fl (7.4-10.4); MONOCYTE # 0.5 10^3/ul (0.3-0.9); MONOCYTES % 6.3 % (0.0-11.0); NEUTROPHIL # 5.7 10^3/ul (1.6-7.5); NEUTROPHILS % 72.3 % (39.0-77.0); PLATELET COUNT 259 10^3/UL (140-415); RED BLOOD COUNT 4.31 10^6/ul (4.20-5.40); RED CELL DISTRIBUTION WIDTH 12.2 % (11.5-14.5); WHITE BLOOD COUNT 7.9 10^3/ul (4.8-10.8)
[2017-04-06 19:38] LABS: ANION GAP 10 (8-16); BLOOD UREA NITROGEN 15 mg/dl (7-20); CALCIUM 9.5 mg/dl (8.4-10.2); CARBON DIOXIDE 26 mmol/L (21-31); CHLORIDE 100 mmol/L (97-110); GLUCOSE 166 mg/dl (70-220); POTASSIUM 3.8 mmol/L (3.5-5.1); SODIUM 132 mmol/L (135-144)
--- NOTE | 2017-04-06 19:40 | RADRPT ---
PROCEDURE: CT head, without contrast. CLINICAL INDICATION: Patient experiencing a headache. TECHNIQUE: Noncontrast CT examination of the head, with axial, sagittal and coronal reformatted im ages. Automated dose exposure control was employed. CTDI: 44.52 and DLP: 720.23 COMPARISON: 01/24/2016. FINDINGS: Chronic changes of atrophy and small vessel disease of white matter. No acute hemorrhage. Subarachnoid spaces are substantially preserved and symmetric. Ventricles ar e unremarkable. No mass effect. Jiménez-white matter distinction is preserved without evident decreased attenuation t o suggest acute or recent infarct. Sinuses and osseous structures are unremarkable. IMPRESSION: Chronic changes of atrophy and small vessel disease white matter, and otherwise, no acute process in the head. RPTAT: [facility] Physician Santo Date Time Electronically viewed and signed by Physician Santo on 04/06/2017 19:40 RS/
[2017-04-06 19:51] LABS: TROPONIN-I < 0.012 ng/ml (0.00-0.12)
[2017-04-06] MEDS ORDERED: ACET325T33 PO (20:00)
[2017-04-06 20:16] LABS: INR 1.17; PARTIAL THROMBOPLASTIN TIME 30.6 Sec (25.0-35.0); PT RATIO 1.2
[2017-04-06 20:32] VITALS: BP 148/86; PULSE 71; RESP 18
--- NOTE | 2017-04-06 23:17 | ERD ---
ER Documentation Chief Complaint Date/Time DATE: 04/06/17 TIME: 23:15 Chief Complaint INMAN since am, took mult asa, possible 10 or more all day, vomit x1, ap HPI Patient is a 76-year-old female with hypertension headache. The patient was brought in by ambulance. She says "I cannot eat nothing". She had one episode of vomiting and had dry mouth. She tried aspirin today for pain. She denies slurred speech. The headache was gradual in onset. Upon review of old medical records this is the patient's seventh visit to the ER since 2014. ROS All systems reviewed and are negative except as per history of present illness. Medications Home Meds Active Scripts Acetaminophen* (Tylenol*) 325 Mg Tablet, 2 TAB PO Q8 Y for PAIN AND OR ELEVATED TEMP, #20 TAB Prov:TIMUR MEZA MD 04/06/17 Orphenadrine Citrate (Norflex) 100 Mg Tablet.sa, 100 MG PO BID for 7 Days, TAB.SA Prov:YOANNA TAYLOR 02/18/16 Cephalexin* (Cephalexin*) 500 Mg Capsule, 500 MG PO Q8, #15 CAP Prov:OSCAR BOYD MD 01/25/16 Reported Medications Ibuprofen* (Ibuprofen*) 200 Mg Capsule, 400 MG PO Q6 Y for PAIN, CAP 11/20/16 Trazodone Hcl* (Trazodone Hcl*) 100 Mg Tablet, 100 MG PO QHS, #30 TAB 11/20/16 Methocarbamol* (Robaxin*) 500 Mg Tab, 500 MG PO Q8, TAB 11/20/16 Aspirin* (Aspirin* EC) 81 Mg Tablet.dr, 81 MG PO QID, TAB 11/20/16 Varenicline Tartrate (Chantix) 0.5 Mg Tablet, 0.5 MG PO BID, TAB 01/24/16 Tiotropium [place]* (Spiriva*) 18 Mcg Cap.w.dev, 1 CAP INHALATION DAILY, #30 CAP 09/29/15 Mirtazapine* (Mirtazapine*) 15 Mg Tablet, 15 MG PO HS, TAB 09/29/15 Docusate Sodium (COL-RITE) 250 Mg Capsule, 250 MG PO DAILY, CAP 09/29/15 [place] Hcl* (Salagen*) 5 Mg Tablet, 10 MG PO TID, TAB 04/08/15 Oxybutynin Chloride* (Oxybutynin Chloride* ER) 15 Mg/Bottle Tab.osm.24, 15 MG PO DAILY, TAB.SA 04/08/15 Morphine Sulfate* (Ms Contin ER*) 30 Mg Tabsr, 30 MG PO BID, TAB 04/08/15 Midodrine* (Midodrine*) 5 Mg Tablet, 5 MG PO BID, TAB 04/08/15 Atorvastatin Calcium* (Atorvastatin Calcium*) 20 Mg Tablet, 20 MG PO HS, TAB 04/08/15 Clonazepam* (Clonazepam*) 1 Mg Tablet, 1 MG PO TID, TAB 04/08/15 Metformin* (Glucophage*) 500 Mg Tab, 500 MG PO BID 01/14/12 Duloxetine Hcl* (Cymbalta*) 60 Mg Capsule.dr, 60 MG PO DAILY 01/14/12 Allergies Allergies: Coded Allergies: No Known Allergy (Unverified , 09/29/15) PMhx/Soc History of Surgery: Yes (bladder Sx ) Anesthesia Reaction: No Hx Neurological Disorder: No Hx Respiratory Disorders: Yes (SOB, asthma, bronchitis) Hx Cardiac Disorders: Yes (pacemaker; HTN) Hx Psychiatric Problems: Yes (depression) Hx Miscellaneous Medical Probl: Yes (DM, leg weakness) Hx Alcohol Use: No Hx Substance Use: No Hx Tobacco Use: No Smoking Status: Current every day smoker FmHx Family History: diabetes Physical Exam Vitals Vital Signs Date Time Temp Pulse Resp B/P Pulse Ox O2 Delivery O2 Flow Rate FiO2 04/06/17 20:32 71 18 148/86 97 Room Air 04/06/17 18:46 98.2 79 20 162/101 99 Physical Exam Const: No acute distress Head: Atraumatic Eyes: Normal Conjunctiva ENT: Normal External Ears, Nose and Mouth. Neck: Full range of motion..~ No meningismus. Resp: Clear to auscultation bilaterally Cardio: Regular rate and rhythm, no murmurs Abd: Soft, non tender, non distended. Normal bowel sounds Skin: No petechiae or rashes Back: No midline or flank tenderness Ext: No cyanosis, or edema Neur: Awake and alert, No slurred speech, cranial nerves II through XII intact, strength is 5 out of 5 in all 4 extremity Psych: Normal Mood and Affect Result Diagram: 04/06/17190404/06/171904 Results 24 hrs Laboratory Tests Test 04/06/17 19:05 White Blood Count 7.910^3/ul Red Blood Count 4.3110^6/ul Hemoglobin 14.1g/dl Hematocrit 40.5% Mean Corpuscular Volume 94.0fl Mean Corpuscular Hemoglobin 32.7pg Mean Corpuscular Hemoglobin Concent 34.8g/dl Red Cell Distribution Width 12.2% Platelet Count 87328^3/UL Mean Platelet Volume 10.2fl Neutrophils % 72.3% Lymphocytes % 19.4% Monocytes % 6.3% Eosinophils % 1.1% Basophils % 0.6% Nucleated Red Blood Cells % 0.0/100WBC Neutrophils # 5.710^3/ul Lymphocytes # 1.510^3/ul Monocytes # 0.510^3/ul Eosinophils # 0.110^3/ul Basophils # 0.110^3/ul Nucleated Red Blood Cells # 0.010^3/ul Prothrombin Time 15.0Sec Prothrombin Time Ratio 1.2 INR International Normalized Ratio 1.17 Activated Partial Thromboplast Time 30.6Sec Sodium Level 132mmol/L Potassium Level 3.8mmol/L Chloride Level 100mmol/L Carbon Dioxide Level 26mmol/L Anion Gap 10 Blood Urea Nitrogen 15mg/dl Creatinine 0.80mg/dl Glucose Level 166mg/dl Calcium Level 9.5mg/dl Troponin I < 0.012ng/ml Current Medications Medications (Trade) Dose Ordered Sig/Elias Route PRN Reason Start Time Stop Time Status Last Admin Dose Admin Sodium Chloride (NS) 500 ml @ 500 mls/hr Q1H STAT IV 04/06/17 18:45 04/06/17 19:44 DC 04/06/17 19:15 Morphine Sulfate (morphine) 4 mg ONCE STAT IV 04/06/17 18:45 04/06/17 18:48 DC 04/06/17 19:15 Ondansetron HCl (Zofran Inj) 4 mg ONCE STAT IV 04/06/17 18:45 04/06/17 18:48 DC 04/06/17 19:16 Procedures/MDM CT head shows no intracranial hemorrhage or mass per radiology. Smoking Cessation Therapy: Pt. was lectured for greater than 3 minutes on the health risks of continued smoking and the benefits of cessation. Patient is a 76-year-old female presents with headache. She has no signs of stroke here in the emergency department. Her CT scan of the brain is negative. Laboratory studies show a mild hyponatremia of 132. The patient be discharged and can follow-up with her primary doctor within 24-48 hours. The patient can return sooner for any worsening symptoms. I believe outpatient management is appropriate. Departure Diagnosis: Primary Impression: Headache Headache type: unspecified Headache chronicity pattern: acute headache Intractability: not intractable Qualified Code: R51 - Acute nonintractable headache, unspecified headache type Condition: Fair Patient Instructions: Self-Care for Headaches Referrals: JOES DICKINSON (PCP) Additional Instructions: Call your primary care doctor TOMORROW for an appointment during the next 1-2 days.See the doctor sooner or return here if your condition worsens before your appointment time. TIMUR MEZA MD Apr 06, 2017 23:17
== END 2017-04-06 20:35 | disposition home or self-care (01) ==
LOC: E/R 18:36
DX: R51 Headache (principal); I10 Essential (primary) hypertension; E11.9 Type 2 diabetes mellitus without complications; J45.909 Unspecified asthma, uncomplicated; F17.210 Nicotine dependence, cigarettes, uncomplicated; R06.02 Shortness of breath; Z79.82 Long term (current) use of aspirin; Z79.84 Long term (current) use of oral hypoglycemic drugs; Z95.0 Presence of cardiac pacemaker
CPT/HCPCS: 36415; 70450; 80048; 84484; 85025; 85610; 85730; 96374; 96375; 99285; J2270; J2405; J7040

== ENCOUNTER 2017-06-22 16:45 | Emergency (ER) | payer OTHER ==
[~2017-06-22] VITALS: Wt 68.1 kg
[~2017-06-22 16:45] MED LIST changes: +ACET325T33 PO
[2017-06-22 16:48] VITALS: Wt 68.1 kg
--- NOTE | 2017-06-22 17:07 | ERD ---
ER Documentation Chief Complaint Chief Complaint LEFT FOOT PAIN AND MILD SWELLING FOR THE PAST FEW DAYS, NON TRAUMATIC HPI 76-year-old woman presents with pain to the toes and feet bilaterally. She states she experiences the pain while trying to put on her shoes to go walking. She does have a history of lumbar spinal stenosis and has had multiple similar episodes in the past including pain, paresthesias, and generalized bilateral lower extremity weakness. She states the pain is worse than usual but she admits to having pain on a daily basis to her feet and usually uses 1 morphine tablet per day for pain control. Patient denies back pain at this time , no fevers or chills, no weight loss, no headache or blurry vision. Patient states her left leg is normally swollen but denies recent imaging. patient transported here by EMS without further complications. ROS All systems reviewed and are negative except as per history of present illness. Medications Home Meds Active Scripts Oxycodone HCl/Acetaminophen (Percocet 5-325 mg Tablet) 1 Each Tablet, 1 EACH PO TID for PAIN AND/OR INFLAMMATION, #12 TAB Prov:ATTILA PULIDO MD 06/22/17 Reported Medications Potassium Chloride* (K-Dur*) 10 Meq Tab.prt.sr, 10 MEQ PO BID, TAB 06/22/17 Furosemide* (Furosemide*) 20 Mg Tablet, 20 MG PO DAILY, #60 TAB 06/22/17 Trazodone Hcl* (Trazodone Hcl*) 100 Mg Tablet, 100 MG PO QHS, #30 TAB 11/20/16 Tiotropium [place]* (Spiriva*) 18 Mcg Cap.w.dev, 1 CAP INHALATION DAILY, #30 CAP 09/29/15 Mirtazapine* (Mirtazapine*) 15 Mg Tablet, 15 MG PO HS, TAB 09/29/15 Oxybutynin Chloride* (Oxybutynin Chloride* ER) 15 Mg/Bottle Tab.osm.24, 15 MG PO DAILY, TAB.SA 04/08/15 Midodrine* (Midodrine*) 5 Mg Tablet, 5 MG PO BID, TAB 04/08/15 Atorvastatin Calcium* (Atorvastatin Calcium*) 20 Mg Tablet, 20 MG PO HS, TAB 04/08/15 Clonazepam* (Clonazepam*) 1 Mg Tablet, 1 MG PO TID, TAB 04/08/15 Metformin* (Glucophage*) 500 Mg Tab, 500 MG PO BID 01/14/12 Duloxetine Hcl* (Cymbalta*) 60 Mg Capsule.dr, 60 MG PO DAILY 01/14/12 Discontinued Reported Medications Ibuprofen* (Ibuprofen*) 200 Mg Capsule, 400 MG PO Q6 Y for PAIN, CAP 11/20/16 Methocarbamol* (Robaxin*) 500 Mg Tab, 500 MG PO Q8, TAB 11/20/16 Aspirin* (Aspirin* EC) 81 Mg Tablet.dr, 81 MG PO QID, TAB 11/20/16 Varenicline Tartrate (Chantix) 0.5 Mg Tablet, 0.5 MG PO BID, TAB 01/24/16 Docusate Sodium (COL-RITE) 250 Mg Capsule, 250 MG PO DAILY, CAP 09/29/15 [place] Hcl* (Salagen*) 5 Mg Tablet, 10 MG PO TID, TAB 04/08/15 Morphine Sulfate* (Ms Contin ER*) 30 Mg Tabsr, 30 MG PO BID, TAB 04/08/15 Discontinued Scripts Acetaminophen* (Tylenol*) 325 Mg Tablet, 2 TAB PO Q8 Y for PAIN AND OR ELEVATED TEMP, #20 TAB Prov:TIMUR MEZA MD 04/06/17 Orphenadrine Citrate (Norflex) 100 Mg Tablet.sa, 100 MG PO BID for 7 Days, TAB.SA Prov:YOANNA TAYLOR 02/18/16 Cephalexin* (Cephalexin*) 500 Mg Capsule, 500 MG PO Q8, #15 CAP Prov:OSCAR BOYD MD 01/25/16 Allergies Allergies: Coded Allergies: No Known Allergy (Unverified , 06/22/17) PMhx/Soc chronic bilateral lower extremity weakness from chronic lumbar stenosis. She was admitted in September 2015 and was evaluated by neurosurgeon Dr. Hanson who did not recommended surgery, diabetes mellitus, history of sick sinus syndrome, dyslipidemia, depression, anxiety, history of lung cancer treated with radiation therapy, peripheral neuropathy, history of stroke with left-sided weakness, COPD, pacemaker History of Surgery: Yes (bladder Sx ) Anesthesia Reaction: No Hx Neurological Disorder: No Hx Respiratory Disorders: Yes (SOB, asthma, bronchitis) Hx Cardiac Disorders: Yes (pacemaker; HTN) Hx Psychiatric Problems: Yes (depression) Hx Miscellaneous Medical Probl: Yes (DM, leg weakness) Hx Alcohol Use: No Hx Substance Use: No Hx Tobacco Use: No FmHx Family History: No diabetes Physical Exam Vitals Vital Signs Date Time Temp Pulse Resp B/P Pulse Ox O2 Delivery O2 Flow Rate FiO2 06/22/17 19:00 98.5 75 20 164/108 100 Nasal Cannula 2.0 06/22/17 16:59 98.5 80 20 162/76 100 Physical Exam GENERAL: Well-developed, well-nourished, mild discomfort, afebrile HEENT: Dry mucous membranes, pink conjunctiva, no cervical spine tenderness or step-off deformities, no goiter, no jaundice or icterus, extraocular movements intact without pain. No submandibular induration, and no pharyngeal erythema NEURO: Alert and oriented 3, cranial nerves II through XII intact bilaterally, pupils equal round reactive to light, no focal deficits or facial asymmetry, sensation intact distally Strength 5/5 in upper and lower extremities bilaterally CARDIAC: Regular rate and rhythm, no murmurs rubs or gallops LUNGS: Clear bilaterally no wheezing crackles or stridor ABDOMEN: Soft nontender, no guarding, no rigidity, no rebound, no psoas sign no obturator sign. Normoactive bowel sounds SKIN: Warm and dry to touch, no abrasions, contusions, or hematomas, no lacerations, no ecchymosis, no target lesions, and without ulcers EXTREMITIES: No clubbing cyanosis, 1+ pitting edema in the left lower extremity , calves are bilaterally symmetrical, no Homans sign, no popliteal cord sign. Distal pulses equal and bilateral PSYCH: Normal affect without agitation or irritability Result Diagram: 06/22/17 1748 06/22/17 174 Results 24 hrs Laboratory Tests Test 06/22/17 17:48 06/22/17 18:05 White Blood Count 8.810^3/ul Red Blood Count 4.1210^6/ul Hemoglobin 13.6g/dl Hematocrit 38.7% Mean Corpuscular Volume 93.9fl Mean Corpuscular Hemoglobin 33.0pg Mean Corpuscular Hemoglobin Concent 35.1g/dl Red Cell Distribution Width 12.3% Platelet Count 54893^3/UL Mean Platelet Volume 9.5fl Neutrophils % 65.6% Lymphocytes % 22.3% Monocytes % 8.1% Eosinophils % 3.0% Basophils % 0.8% Nucleated Red Blood Cells % 0.0/100WBC Neutrophils # 5.810^3/ul Lymphocytes # 2.010^3/ul Monocytes # 0.710^3/ul Eosinophils # 0.310^3/ul Basophils # 0.110^3/ul Nucleated Red Blood Cells # 0.010^3/ul Sodium Level 134mmol/L Potassium Level 4.2mmol/L Chloride Level 99mmol/L Carbon Dioxide Level 27mmol/L Anion Gap 12 Blood Urea Nitrogen 27mg/dl Creatinine 1.16mg/dl Glucose Level 99mg/dl Calcium Level 9.6mg/dl Total Bilirubin 0.5mg/dl Direct Bilirubin 0.00mg/dl Indirect Bilirubin 0.5mg/dl Aspartate Amino Transf (AST/SGOT) 28IU/L Alanine Aminotransferase (ALT/SGPT) 38IU/L Alkaline Phosphatase 65IU/L Total Protein 7.0g/dl Albumin 4.1g/dl Globulin 2.90g/dl Albumin/Globulin Ratio 1.41 Lipase 53U/L Urine Color STRAW Urine Clarity CLEAR Urine pH 6.0 Urine Specific [place] 1.005 Urine Ketones NEGATIVEmg/dL Urine Nitrite NEGATIVEmg/dL Urine Bilirubin NEGATIVEmg/dL Urine Urobilinogen NEGATIVEmg/dL Urine Leukocyte Esterase NEGATIVELeu/ul Urine Hemoglobin NEGATIVEmg/dL Urine Glucose NEGATIVEmg/dL Urine Total Protein NEGATIVEmg/dl Current Medications Medications (Trade) Dose Ordered Sig/Elias Route PRN Reason Start Time Stop Time Status Last Admin Dose Admin Sodium Chloride (NS) 1,000 ml @ 1,000 mls/hr Q1H STAT IV 06/22/17 17:16 06/22/17 18:15 DC 06/22/17 17:49 Morphine Sulfate (morphine) 4 mg ONCE STAT IV 06/22/17 17:16 06/22/17 17:18 DC 06/22/17 17:49 Ondansetron HCl (Zofran Inj) 4 mg ONCE STAT IV 06/22/17 17:16 06/22/17 17:18 DC 06/22/17 17:48 Procedures/MDM IV line was established patient was placed on monitoring analyst rhythm strip revealed a sinus rhythm at about 80 bpm with upright P and T waves. Patient was afebrile Recent CAT scan of the lumbar spine was performed:IMPRESSION: 1. Compression deformity of the L2 vertebral body with 45% central height loss. This is of uncertain age. Mild levoscoliosis. 2. Grade 1 anterolisthesis at L4-L5, 7 mm. There is severe bilateral facet hypertrophy at this level. There is associated moderate to severe bony central canal stenosis, moderate bilateral bony foraminal stenosis. 3. Mild to moderate disk osteophyte complexes at L1-L2 and L3-L4. Mild disk osteophyte complex at L2-L3 and L5-S1. 4. Facet hypertrophy, moderate to severe L3-L4 and L5-S1. 5. Mild bony central canal stenosis at C3-C4. 6. Severe left and moderate right bony foraminal stenosis at L5-S1. 7. Prominent aortic and branch vessel calcification. I administered 1 L normal saline intravenously for dehydration, morphine 4 mg IV , and Zofran 4 mg IV with good effect. CBC was normal, electrolytes revealed dehydration with an elevated BUN/ creatinine ratio, liver function tests normal, troponin negative, urine analysis negative for infection. Vascular Doppler ultrasound of bilateral lower extremities was performed, no DVT noted to the lower extremities. Differential diagnoses considered, included but not limited to acute coronary syndrome, pulmonary embolism, aortic dissection, abdominal aortic aneurysm, sepsis, stroke, meningitis, encephalitis, pneumonia, appendicitis, cholecystitis , bowel obstruction, pyelonephritis, nephrolithiasis, cystitis, as well as metabolic, hematologic, and electrolyte abnormalities. As well as abscess, cellulitis, fractures, and dislocations. Patient feels much better at this time, and vital signs are normal, symptoms have improved. I did give strict instructions to return to the ED if symptoms continue or worsen, patient will otherwise follow-up with primary care physician. Patient understood instructions and agreed to plan. Disclaimer: Inadvertent spelling and grammatical errors are likely due to EHR/ dictation software use and do not reflect on the overall quality of patient care. Also, please note that the electronic time recorded on this note does not necessarily reflect the actual time of the patient encounter. Departure Diagnosis: Primary Impression: Dehydration Additional Impressions: Lumbar spinal stenosis Neurogenic claudication status: with neurogenic claudication Qualified Code: M48.062 - Spinal stenosis of lumbar region with neurogenic claudication Chronic pain Chronic pain type: chronic pain syndrome Qualified Code: G89.4 - Chronic pain syndrome Peripheral edema Condition: Good ATTILA PULIDO MD Jun 22, 2017 17:07
[2017-06-22] MEDS ORDERED: SOD CHLORIDE 0.9% 1,000 ML IV STA (17:16)
[2017-06-22] MEDS ORDERED: ONDANSETRON 4 MG INJ IV STA (17:16)
[2017-06-22] MEDS ORDERED: morphine 4 MG/ML VIAL IV STA (17:16)
[2017-06-22 17:53] LABS: BASOPHIL # 0.1 10^3/ul (0.0-0.1); BASOPHILS % 0.8 % (0.0-2.0); EOSINOPHILS # 0.3 10^3/ul (0.0-0.5); HEMATOCRIT 38.7 % (37.0-47.0); HEMOGLOBIN 13.6 g/dl (12.0-16.0); LYMPHOCYTES % 22.3 % (15.0-51.0); MEAN CORPUSCULAR HGB CONC 35.1 g/dl (32.0-37.0); MEAN CORPUSCULAR VOLUME 93.9 fl (82.0-101.0); MEAN PLATELET VOLUME 9.5 fl (7.4-10.4); MONOCYTE # 0.7 10^3/ul (0.3-0.9); MONOCYTES % 8.1 % (0.0-11.0); NEUTROPHIL # 5.8 10^3/ul (1.6-7.5); NEUTROPHILS % 65.6 % (39.0-77.0); PLATELET COUNT 236 10^3/UL (140-415); RED BLOOD COUNT 4.12 10^6/ul (4.20-5.40); RED CELL DISTRIBUTION WIDTH 12.3 % (11.5-14.5); WHITE BLOOD COUNT 8.8 10^3/ul (4.8-10.8)
[2017-06-22 18:11] LABS: ALBUMIN 4.1 g/dl (3.3-4.9); ALBUMIN/GLOBULIN RATIO 1.41; BILIRUBIN,INDIRECT 0.5 mg/dl (0-1.1); BILIRUBIN,TOTAL 0.5 mg/dl (0.2-1.3); CALCIUM 9.6 mg/dl (8.4-10.2); CREATININE 1.16 mg/dl (0.44-1.00); POTASSIUM 4.2 mmol/L (3.5-5.1)
[2017-06-22 18:26] LABS: ADD UMIC NO; UR ASCORBIC ACID NEGATIVE (NEGATIVE); UR BILIRUBIN (Dip) NEGATIVE (NEGATIVE); UR BLOOD (Dip) NEGATIVE (NEGATIVE); UR CLARITY CLEAR (CLEAR); UR COLOR STRAW (YELLOW); UR GLUCOSE (Dip) NEGATIVE (NEGATIVE); UR KETONES (Dip) NEGATIVE (NEGATIVE); UR LEUKOCYTE ESTERASE (Dip) NEGATIVE Leu/ul (NEGATIVE); UR NITRITE (Dip) NEGATIVE (NEGATIVE); UR SPECIFIC GRAVITY (Dip) 1.005 (1.003-1.030); UR TOTAL PROTEIN (Dip) NEGATIVE (NEGATIVE); UR UROBILINOGEN (Dip) NEGATIVE (NEGATIVE)
--- NOTE | 2017-06-22 18:39 | RADRPT ---
PROCEDURE: Ultrasound of the bilateral lower extremity venous system. CLINICAL INDICATION: Bilateral leg pain and swelling, deep venous thrombosis TECHNIQUE: Jiménez scale with and without compression, color doppler, spectral doppler of the venous system of the bilateral lower extremities was performed. Venous augmentation maneuvers were utilized . COMPARISON: No prior studies are available for comparison. FINDINGS: Right: Common femoral vein: Patent. Femoral vein: Patent. Popliteal vein: Patent. Calf veins: Patent. No soft tissue abnormalities are identified. Left: Common femoral vein: Patent. Femoral vein: Patent. Popliteal vein: Patent. Calf veins: Patent. No soft tissue abnormalities are identified. IMPRESSION: No evidence of a deep vein thrombosis within the bilateral lower extremities. RPTAT: AADD .Roland Sellers MD, Date Time Electronically viewed and signed by .Roland Sellers MD, on 06/22/2017 18:39 .B/
[2017-06-22] MEDS ORDERED: OXYC-279 PO (18:46)
[2017-06-22] MEDS ORDERED: FURO20TA3 PO (18:56)
[2017-06-22] MEDS ORDERED: POTA10TA37 PO (18:58)
[2017-06-22 20:47] VITALS: BP 116/68; PULSE 63; RESP 20; TEMP 98.5
== END 2017-06-22 20:51 | disposition home or self-care (01) ==
LOC: E/R 16:45
DX: E86.0 Dehydration (principal); M48.062 Spinal stenosis, lumbar region with neurogenic claudication; G89.4 Chronic pain syndrome; R60.0 Localized edema; E11.9 Type 2 diabetes mellitus without complications; I10 Essential (primary) hypertension; J45.909 Unspecified asthma, uncomplicated; Z95.0 Presence of cardiac pacemaker; Z79.82 Long term (current) use of aspirin; Z79.84 Long term (current) use of oral hypoglycemic drugs
CPT/HCPCS: 51702; 80053; 81003; 83690; 85025; 87086; 93970; 96374; 96375; 99285; J2270; J2405; J7030

== ENCOUNTER 2017-07-03 19:24 | Emergency (ER) | payer OTHER ==
[~2017-07-03] VITALS: Ht 172.7 cm; Wt 80.0 kg
[~2017-07-03 19:24] MED LIST changes: -ACET325T33 PO; -ASPI-664 PO; -CEPH500C PO; -DOCU250C17 PO; +FURO20TA3 PO; -IBUP200C PO; -METH500T PO; -MORP-58 PO; -ORPH100T PO; +OXYC-279 PO; -PILO5TAB PO; +POTA10TA37 PO; -VARE0.5T PO
[2017-07-03 19:36] VITALS: Ht 172.7 cm; Wt 80.0 kg
[2017-07-03] MEDS ORDERED: METOCLOPRAMIDE 10 MG INJ IV STA (20:06)
[2017-07-03] MEDS ORDERED: SOD CHLORIDE 0.9% 500 ML IV STA (20:06)
[2017-07-03 20:14] LABS: BASOPHIL # 0.1 10^3/ul (0.0-0.1); BASOPHILS % 0.8 % (0.0-2.0); EOSINOPHILS # 0.2 10^3/ul (0.0-0.5); EOSINOPHILS % 2.1 % (0.0-7.0); HEMATOCRIT 43.2 % (37.0-47.0); HEMOGLOBIN 15.1 g/dl (12.0-16.0); LYMPHOCYTES # 2.2 10^3/ul (0.8-2.9); LYMPHOCYTES % 24.1 % (15.0-51.0); MEAN CORPUSCULAR HEMOGLOBIN 32.6 pg (29.0-33.0); MEAN CORPUSCULAR VOLUME 93.3 fl (82.0-101.0); MEAN PLATELET VOLUME 9.8 fl (7.4-10.4); MONOCYTE # 0.6 10^3/ul (0.3-0.9); MONOCYTES % 6.5 % (0.0-11.0); NEUTROPHILS % 66.3 % (39.0-77.0); PLATELET COUNT 301 10^3/UL (140-415); RED BLOOD COUNT 4.63 10^6/ul (4.20-5.40); RED CELL DISTRIBUTION WIDTH 12.2 % (11.5-14.5)
[2017-07-03] MEDS ORDERED: DIPHENHYDRAMINE 50 MG INJ IV ONE (20:30)
[2017-07-03 20:33] LABS: INR 1.13; PROTIME 14.7 Sec (11.9-14.9); PT RATIO 1.1
[2017-07-03 20:34] LABS: PARTIAL THROMBOPLASTIN TIME 30.1 Sec (25.0-35.0)
[2017-07-03 20:40] LABS: BLOOD UREA NITROGEN 17 mg/dl (7-20); CALCIUM 10.7 mg/dl (8.4-10.2); CARBON DIOXIDE 25 mmol/L (21-31); CHLORIDE 101 mmol/L (97-110); CREATININE 0.93 mg/dl (0.44-1.00); GLUCOSE 110 mg/dl (70-220); SODIUM 136 mmol/L (135-144)
[2017-07-03 20:58] LABS: ANION GAP 14 (8-16); POTASSIUM 4.3 mmol/L (3.5-5.1); TROPONIN-I < 0.012 ng/ml (0.00-0.12)
--- NOTE | 2017-07-03 21:08 | RADRPT ---
PROCEDURE: CT HEAD WITHOUT CONTRAST: CLINICAL INDICATION: 76 years of age, female. 3-day history of severe headache TECHNIQUE: CT of the head was performed without IV contrast. Coronal and sagittal reformatted images were obtained from the axial source images. Images were reviewed on a high-resolution PACS workstat ion. DICOM images are available. Dose information: The estimated radiation dose (CTDIvol mGy) for each series in this exam is 43. Th e estimated cumulative dose (DLP mGy-cm) is 720. One or more of the following dose reduction techniques were used: - Automated exposure control. - Adjustment of the mA and/or kV according to patient size. - Use of iterative reconstruction technique. COMPARISON: April 06, 2017 FINDINGS: BRAIN PARENCHYMA: Negative for evidence of acute intraparenchymal hemorrhage, significant mass effect or midline shift . There are mild patchy low density changes in the supratentorial deep white matter that are nonspeci fic but likely due to chronic small vessel ischemia. Jiménez-white matter differentiation is otherwise maintained. Moderate diffuse cerebral tissue loss. VENTRICLES AND EXTRA-AXIAL SPACES: Prominence of the ventricles proportionate to the sulci in keeping with cerebral tissue loss. Midli ne is central. Basal cisterns are normal. No abnormal extra-axial fluid collections are identified. Negative for evidence of acute subarachnoi d or extra-axial hemorrhage. VASCULATURE: Mild intracranial atherosclerosis. VISUALIZED PARANASAL SINUSES: Clear. MASTOID AIR CELLS: Clear. BONES: No focal abnormality. Additional comment: None. IMPRESSION: 1. Negative for evidence of an acute intracranial abnormality. Negative for evidence of acute intra cranial hemorrhage or mass effect. Cause for headache is not evident. 2. Mild patchy low density changes in the supratentorial deep white matter are nonspecific but like ly due to chronic small vessel ischemia. The appearance is unchanged from prior exam. 3. Mild intracranial atherosclerosis. Moderate diffuse cerebral tissue loss. RPTAT: HCTS Physician Kristin Date Time Electronically viewed and signed by Physician Kristin on 07/03/2017 21:07 CS/
[2017-07-03 21:43] LABS: ADD UMIC YES; UR ASCORBIC ACID NEGATIVE (NEGATIVE); UR BILIRUBIN (Dip) NEGATIVE (NEGATIVE); UR BLOOD (Dip) NEGATIVE (NEGATIVE); UR CLARITY CLEAR (CLEAR); UR COLOR STRAW (YELLOW); UR GLUCOSE (Dip) NEGATIVE (NEGATIVE); UR KETONES (Dip) NEGATIVE (NEGATIVE); UR LEUKOCYTE ESTERASE (Dip) TRACE Leu/ul (NEGATIVE); UR NITRITE (Dip) NEGATIVE (NEGATIVE); UR RBC 1 /HPF (0-5); UR SPECIFIC GRAVITY (Dip) 1.005 (1.003-1.030); UR TOTAL PROTEIN (Dip) NEGATIVE (NEGATIVE); UR UROBILINOGEN (Dip) NEGATIVE (NEGATIVE)
[2017-07-03] MEDS ORDERED: CEPH-443 PO (23:13)
[2017-07-03] MEDS ORDERED: EXCED PO (23:14)
--- NOTE | 2017-07-03 23:27 | ERD ---
ER Documentation Chief Complaint Chief Complaint Headache x 2 days HPI 76-year-old female presents with excruciating headache for 2 days. It started gradually and got worse. She did not have any trauma. There is generalized of her whole head. She has no visual symptoms. She has no neurological deficits. States that she has chronic balance problem with her legs but she is careful at home and has not fallen recently. Has had no fevers or chills. ROS All systems reviewed and are negative except as per history of present illness. Medications Home Meds Active Scripts Acetaminophen/Aspirin/Caffeine* (Excedrin*) 1 Tab Tab, 1 TAB PO Q6 for HEADACHE , #20 TAB Prov:COLLEENBIBIANA DO 07/03/17 Cephalexin* (Keflex*) 500 Mg Capsule, 500 MG PO QID for 3 Days, CAP Prov:COLLEENBIBIANA DO 07/03/17 Oxycodone HCl/Acetaminophen (Percocet 5-325 mg Tablet) 1 Each Tablet, 1 EACH PO TID for PAIN AND/OR INFLAMMATION, #12 TAB Prov:ATTILA PULDIO MD 06/22/17 Reported Medications Potassium Chloride* (K-Dur*) 10 Meq Tab.prt.sr, 10 MEQ PO BID, TAB 06/22/17 Furosemide* (Furosemide*) 20 Mg Tablet, 20 MG PO DAILY, #60 TAB 06/22/17 Trazodone Hcl* (Trazodone Hcl*) 100 Mg Tablet, 100 MG PO QHS, #30 TAB 11/20/16 Tiotropium [place]* (Spiriva*) 18 Mcg Cap.w.dev, 1 CAP INHALATION DAILY, #30 CAP 09/29/15 Mirtazapine* (Mirtazapine*) 15 Mg Tablet, 15 MG PO HS, TAB 09/29/15 Oxybutynin Chloride* (Oxybutynin Chloride* ER) 15 Mg/Bottle Tab.osm.24, 15 MG PO DAILY, TAB.SA 04/08/15 Midodrine* (Midodrine*) 5 Mg Tablet, 5 MG PO BID, TAB 04/08/15 Atorvastatin Calcium* (Atorvastatin Calcium*) 20 Mg Tablet, 20 MG PO HS, TAB 04/08/15 Clonazepam* (Clonazepam*) 1 Mg Tablet, 1 MG PO TID, TAB 04/08/15 Metformin* (Glucophage*) 500 Mg Tab, 500 MG PO BID 01/14/12 Duloxetine Hcl* (Cymbalta*) 60 Mg Capsule.dr, 60 MG PO DAILY 01/14/12 Allergies Allergies: Coded Allergies: No Known Allergy (Unverified , 07/03/17) PMhx/Soc History of Surgery: Yes (bladder Sx ) Anesthesia Reaction: No Hx Neurological Disorder: No Hx Respiratory Disorders: Yes (SOB, asthma, bronchitis) Hx Cardiac Disorders: Yes (pacemaker; HTN) Hx Psychiatric Problems: Yes (depression) Hx Miscellaneous Medical Probl: Yes (DM, leg weakness) Hx Alcohol Use: No Hx Substance Use: No Hx Tobacco Use: No Smoking Status: Never smoker Physical Exam Vitals Vital Signs Date Time Temp Pulse Resp B/P Pulse Ox O2 Delivery O2 Flow Rate FiO2 07/03/17 21:32 65 20 114/81 97 Room Air 07/03/17 19:36 99.2 80 20 167/156 99 Physical Exam Const: [] Moderate distress. Appears uncomfortable Head: Atraumatic Eyes: Normal Conjunctiva, EOMI, PERRLA ENT: Normal External Ears, Nose and Mouth. Neck: Full range of motion..~ No meningismus. Resp: Clear to auscultation bilaterally Cardio: Regular rate and rhythm, no murmurs Abd: Soft, non tender, non distended. Normal bowel sounds Skin: No petechiae or rashes Back: No midline or flank tenderness Ext: No cyanosis, or edema, distal pulses intact all 4 extremities Neur: Awake and alert oriented 3, cranial nerves II through XII intact, no cerebellar deficits, 5 out of 5 strength all extremities with bilateral strong proximal and distal leg strength. Will get to the bathroom. Psych: Normal Mood and Affect Result Diagram: 07/03/17 1950 07/03/171949 Results 24 hrs Laboratory Tests Test 07/03/17 19:50 07/03/17 21:05 White Blood Count 9.010^3/ul Red Blood Count 4.6310^6/ul Hemoglobin 15.1g/dl Hematocrit 43.2% Mean Corpuscular Volume 93.3fl Mean Corpuscular Hemoglobin 32.6pg Mean Corpuscular Hemoglobin Concent 35.0g/dl Red Cell Distribution Width 12.2% Platelet Count 12527^3/UL Mean Platelet Volume 9.8fl Neutrophils % 66.3% Lymphocytes % 24.1% Monocytes % 6.5% Eosinophils % 2.1% Basophils % 0.8% Nucleated Red Blood Cells % 0.0/100WBC Neutrophils # 6.010^3/ul Lymphocytes # 2.210^3/ul Monocytes # 0.610^3/ul Eosinophils # 0.210^3/ul Basophils # 0.110^3/ul Nucleated Red Blood Cells # 0.010^3/ul Prothrombin Time 14.7Sec Prothrombin Time Ratio 1.1 INR International Normalized Ratio 1.13 Activated Partial Thromboplast Time 30.1Sec Sodium Level 136mmol/L Potassium Level 4.3mmol/L Chloride Level 101mmol/L Carbon Dioxide Level 25mmol/L Anion Gap 14 Blood Urea Nitrogen 17mg/dl Creatinine 0.93mg/dl Glucose Level 110mg/dl Calcium Level 10.7mg/dl Troponin I < 0.012ng/ml Urine Color STRAW Urine Clarity CLEAR Urine pH 7.0 Urine Specific [place] 1.005 Urine Ketones NEGATIVEmg/dL Urine Nitrite NEGATIVEmg/dL Urine Bilirubin NEGATIVEmg/dL Urine Urobilinogen NEGATIVEmg/dL Urine Leukocyte Esterase TRACELeu/ul Urine Microscopic RBC 1/HPF Urine Microscopic WBC 5/HPF Urine Hemoglobin NEGATIVEmg/dL Urine Glucose NEGATIVEmg/dL Urine Total Protein NEGATIVEmg/dl Current Medications Medications (Trade) Dose Ordered Sig/Elias Route PRN Reason Start Time Stop Time Status Last Admin Dose Admin Sodium Chloride (NS) 500 ml @ 500 mls/hr Q1H STAT IV 07/03/17 20:06 07/03/17 21:05 DC 07/03/17 20:19 Metoclopramide HCl (Reglan) 10 mg ONCE STAT IV 07/03/17 20:06 07/03/17 20:10 DC 07/03/17 20:20 Diphenhydramine HCl (Benadryl) 12.5 mg ONCE ONCE IV 07/03/17 20:30 07/03/17 20:31 DC 07/03/17 20:20 Procedures/MDM Patient had an acute headache. I have low suspicion for subarachnoid hemorrhages the headache came on gradually got worse. Negative head CT. Patient has no laboratory abnormalities or signs of acute cardiac ischemia. Does have a positive leukocyte esterase is trace. This may be a result of UTI but does not have other laboratory suggested. Receive from her discharge her with Keflex for 3 days if she is an elderly female who lives alone. She is fully ambulatory in the emergency room and I am recommending neurological follow -up for chronic balance issues with her legs. She believes she is safe. She was given a headache cocktail of 12.5 mg of Benadryl and 10 mg of Reglan and IV fluids. This completely resolved her headache. Will discharge in stable condition with resolved symptoms with primary care follow-up in the next 2 days as well as the neurology instructions. EKG interpretation: Sinus tachycardia rate of 108, 2 PVCs, normal axis, no ST or T-wave changes concerning for acute ischemia, nonspecific T-wave abnormality , QT of 503. Abnormal EKG court monitor interpretation initial sinus tachycardia followed by normal sinus rhythm without arrhythmia He had interpretation: I see no acute process, no hemorrhage, no mass-effect, midline shift, no infarcts, no skull fracture. Departure Diagnosis: Primary Impression: Acute headache Condition: Stable Patient Instructions: Headache, Unspecified Additional Instructions: Call your primary care doctor TOMORROW for an appointment during the next 1-2 days. Obtain a neurological conult for leg sypmtoms. See the doctor sooner or return here if your condition worsens before your appointment time. BIBIANA MACIAS DO Jul 03, 2017 23:27
[2017-07-04 00:58] VITALS: BP 115/71; PULSE 82; RESP 22; TEMP 99.2
== END 2017-07-04 00:59 | disposition home or self-care (01) ==
LOC: E/R 19:24
DX: R51 Headache (principal); I10 Essential (primary) hypertension; E11.9 Type 2 diabetes mellitus without complications; J45.909 Unspecified asthma, uncomplicated; R07.9 Chest pain, unspecified; Z95.0 Presence of cardiac pacemaker; Z79.84 Long term (current) use of oral hypoglycemic drugs
CPT/HCPCS: 36415; 70450; 80048; 81001; 84484; 85025; 85610; 85730; 93005; 96374; 96375; 99285; J1200; J2765; J7040

== ENCOUNTER 2018-01-02 19:52 | Inpatient (IN) | END 2018-01-06 18:20 | DRG 552 ==